=== PATIENT | female | born 1950 | race Hispanic/Latino ===

== ENCOUNTER → 2024-11-22 | Outpatient (CLI) | payer OTHER ==
--- NOTE | 2024-11-23 11:14 | HMCIMG ---
EXAMINATION: MR Cholangiopancreatography CLINICAL HISTORY: Patient presents with epigastric pain. COMPARISON: None provided. TECHNIQUE: Multiplanar images were obtained without intravenous contrast, utilizing a series of customized pulse sequences. FINDINGS: LIVER: The liver is enlarged, measuring approximately 16.8 cm in craniocaudal span. Central intrahepatic biliary radical dilatation with dilatation of the common hepatic duct, measuring up to 0.9 cm. Mild prominence of the common bile duct, measuring up to 0.7 cm, with smooth tapering at the terminal CBD concerning for distal CBD stricture versus post-cholecystectomy changes. No ductal stones identified. No focal lesions. PANCREAS: No mass or peripancreatic fluid. SPLEEN: Normal in size and configuration. ADRENALS: Normal bilaterally. No masses. KIDNEYS: Normal in size and configuration. No evidence of stone, hydronephrosis, mass, or significant cyst. Bilateral minimal non-specific perinephric fat stranding. RETROPERITONEUM: No mass or lymphadenopathy. AORTA: The visualized abdominal aorta is normal in size and configuration. No stenosis or aneurysm. BOWEL/MESENTERY: Normal. No bowel dilatation or wall thickening. No free or loculated fluid, mesenteric stranding, or lymphadenopathy. ABDOMINAL WALL: Postsurgical changes along the ventral abdominal wall. BONES: Normal. IMPRESSION: Central intrahepatic and common hepatic duct dilatation with mild prominence of the common bile duct, may be dure to distal CBD stricture versus post-cholecystectomy changes. No ductal stones identified. Hepatomegaly. /[place]
== END | disposition home or self-care (01) ==
LOC: RAH 07:29
PROVIDERS: ATTEND Internal Medicine
DX: R10.13 Epigastric pain (principal); R16.0 Hepatomegaly, not elsewhere classified
CPT/HCPCS: 74181